=== PATIENT | female | born 1960 | race Caucasian/White ===

== ENCOUNTER → 2017-01-18 | Outpatient (CLI) | payer BC ==
--- NOTE | ~2017-01-18 | NM22 ---
[facility] A Service of [facility] & [facility] RADIOLOGY TEXT RESULTS PATIENT: JERRELL MEDEROS LOCATION: US : 60 UNIT #: [id number] AGE: [address]: Mare Luther APRN SEX: F ORDER DR: [id number] [facility] [address] [place], [place] [address] [id number] O MR#: [id number] Acc #: [id number] NAME: JERRELL MEDEROS : 1960 SEX: F STUDY DATE/TIME: 01/18/2017 7:48 UNIT: CGUS ROOM: STUDY DESCRIPTION: FARTUN Hepatobiliary W GB Pharm Attending Physician: Mare Luther A.P.R.N. Referring Physician: Mare Luther A.P.R.N. Ordering Physician: Mare Luther A.P.R.N. Primary Care Physician: John Moon M.D. MEDICAL IMAGING REPORT This report is preliminary unless electronic signature is present EXAM HIDA scan with Kinevac CCK, 01/18/2017 HISTORY Right upper quadrant abdominal pain and tenderness with nausea for 2 years worsening over the lack over the past year. Epigastric pain and chest pressure. Abdominal bloating, belching and gas. Gastroesophageal reflux disease. FINDINGS The patient received an intravenous injection of 5.97 mCi of technetium 99m tagged Choletec for hepatobiliary imaging. 1 hour following the injection of the radiopharmaceutical the patient received an intravenous injection of 2.2 mcg of Kinevac. There is homogeneous distribution of the radiotracer throughout the liver. Gallbladder activity was seen by 15 minutes postinjection of the radiopharmaceutical. Following Kinevac injection the gallbladder ejection fraction was 95.5% (normal is greater than 30%). IMPRESSION Normal HIDA scan with gallbladder ejection fraction of 95.5%. Dictated by... Seth Acosta M.D. THIS IS AN ELECTRONICALLY VERIFIED REPORT Seth Acosta M.D. at 01/19/2017 7:28 AM MERCEDES/vani TD: 01/18/2017 10:45 JOB #: [id number] MEDICAL IMAGING REPORT [facility] A Service of [facility] & [facility] RADIOLOGY TEXT RESULTS PATIENT: JERRELL MEDEROS LOCATION: [facility] ACC #: [id number] : 60 UNIT #: [id number] AGE: [address]: Mare Luther APRN SEX: F ORDER DR: Page 1 of 1 COPY
--- NOTE | ~2017-01-18 | US6 ---
[facility] A Service of [facility] RADIOLOGY TEXT RESULTS PATIENT: JERRELL MEDEROS LOCATION: [facility] : 60 UNIT #: [id number] AGE: [address]: Mare Luther APRN SEX: F ORDER DR: [id number] [place] [id number] [facility]. [place], [place] [address] [id number] O MR#: [id number] Acc #: [id number] NAME: JERRELL MEDEROS : 1960 SEX: F STUDY DATE/TIME: 01/18/2017 7:15 UNIT: [facility] ROOM: STUDY DESCRIPTION: US Abdominal Limited Attending Physician: Mare Luther A.P.R.N. Referring Physician: Mare Luther A.P.R.N. Ordering Physician: Mare Luther A.P.R.N. Primary Care Physician: John Moon M.D. MEDICAL IMAGING REPORT This report is preliminary unless electronic signature is present EXAM Right upper quadrant ultrasound 01/18/2017 INDICATION Right upper quadrant pain for years. No prior surgeries, hypertension, hyperlipidemia. TECHNIQUE Sonographic imaging right upper quadrant was performed. COMPARISON No comparisons. FINDINGS Pancreas unremarkable to the extent visualized. Portions were obscured by bowel gas and not seen or evaluated. The liver measures 19.2 cm long axis. The echotexture is increased and coarsened most characteristic of at least fatty infiltration. No intrahepatic ductal dilatation or ascites. In the left hepatic lobe, there is a hypoechoic solid mass, oval in configuration measuring 2.1 x 1.2 cm. This is indeterminate. Absent prior outside studies documenting 2 years of stability, further evaluation with multiphase protocol with and without contrast MRI or CT is recommended for further assessment. Both benign and malignant etiologies are in the differential. The right kidney is nonobstructed measures 12.2 cm long axis. The gallbladder sonographically unremarkable. No sonographic Glover sign was described. Extrahepatic common bile duct is top normal to mildly dilated at 7 mm maximum diameter. IMPRESSION 1. Imaging features most characteristic of fatty infiltration of the liver. STS. [facility] A Service of [facility] RADIOLOGY TEXT RESULTS PATIENT: JERRELL MEDEROS LOCATION: [facility] #: [id number] : 60 UNIT #: [id number] AGE: [address]: Mare Luther APRN SEX: F ORDER DR: 2. There is a 2.1 cm solid indeterminate lesion in the left hepatic lobe. Further evaluation with cross-sectional MRI or CT recommend for further assessment. 3. There is no evidence of cholelithiasis. The extrahepatic common bile duct is borderline to mildly dilated at 7 mm. Dictated by... Zane Becker M.D. THIS IS AN ELECTRONICALLY VERIFIED REPORT Zane Becker M.D. at 01/18/2017 11:51 AM Trisha TD: 01/18/2017 09:28 JOB #: [id number] MEDICAL IMAGING REPORT Page 1 of 1 COPY
== END | disposition home or self-care (01) ==
LOC: CGUS 06:50
DX: R10.11 Right upper quadrant pain (principal); K83.8 Other specified diseases of biliary tract; K76.9 Liver disease, unspecified
CPT/HCPCS: 76705; 78227; A9537; J2805

== ENCOUNTER → 2017-01-29 | Outpatient (CLI) | payer BC | END | disposition home or self-care (01) | LOC: CMRI 09:28 | DX: K76.9 Liver disease, unspecified (principal); Z53.9 Procedure and treatment not carried out, unspecified reason ==